=== PATIENT | female | born 1950 | race Caucasian/White ===

== ENCOUNTER 2019-03-25 18:51 | Emergency (ER) | payer OTHER ==
[~2019-03-25] VITALS: Ht 170.2 cm; Wt 59.0 kg
--- NOTE | 2019-03-25 19:00 | NUR ---
PT BIB RA 84 S/P GLM FALL EARLIER WHILE SHOPPING IN [facility]. PT DENIES ANY LOC. LAC ON THE FOREHEAD. PATIENT AAOX4. IN NO ACUTE DISTRESS. DENIES AY SOB. NO CARDIOVASCULAR CONCERN. NO GI/ CONCERN. BED ON LOCK POSITION. FALL PRECAUTION PER PROTOCOL.
[2019-03-25] MEDS ORDERED: TRAZADONE (19:01)
--- NOTE | 2019-03-25 19:12 | NUR ---
DR GIBBS AT BEDSIDE FOR LAC CARE....
[2019-03-25] MEDS ORDERED: SODIUM BICARBONATE 4.2 % (NEUT) 5 ML VIAL TP ONE (19:30)
[2019-03-25] MEDS ORDERED: LIDOCAINE 1%-EPI 1:100,000 20 ML VIAL TP ONE (19:30)
[2019-03-25] MEDS ORDERED: TDAP DIPH,PERTUSS,TET VAC/PF 0.5 ML DISP.SYRIN IM ONE ×2 (19:30→19:32)
[2019-03-25] MEDS ORDERED: CEphaleXIN 500 MG CAPSULE PO ONE (19:30)
[2019-03-25] MEDS ORDERED: CEphaleXIN 500 MG CAPSULE ONE (19:32)
--- NOTE | 2019-03-25 19:48 | NUR ---
OUT FROM ER TO CT VIA TRANSPORT.
--- NOTE | 2019-03-25 19:58 | NUR ---
BACK TO ER FROM CT.
[2019-03-25] MEDS ORDERED: ACETAMINOPHEN ES 500 MG TABLET ONE (20:15)
[2019-03-25] MEDS ORDERED: ACETAMINOPHEN ES 500 MG TABLET PO ONE (20:15)
--- NOTE | 2019-03-25 20:33 | NUR ---
Patient discharged to home in stable conditon. Written and verbal after care instructions given. Patient verbalizes understanding of instructions. Patient ambulated out of ER with steady gait. All belongings with patient.
[2019-03-25 20:38] VITALS: BP 150/86
== END 2019-03-25 20:30 | disposition home or self-care (01) ==
LOC: ER 18:53
DX: S01.81XA Laceration without foreign body of other part of head, initial encounter (principal); Z79.899 Other long term (current) drug therapy; Y92.89 Other specified places as the place of occurrence of the external cause; Y99.8 Other external cause status
CPT/HCPCS: 12013; 70450; 90471; 90715; 99284; J3490 ×2; A4217; A4663; A9150